=== PATIENT | male | born 1985 | race Caucasian/White ===

== ENCOUNTER 2024-08-14 17:43 | Emergency (ER) | payer SELFPAY ==
[~2024-08-14] VITALS: Ht 165.1 cm; Wt 68.0 kg
[2024-08-14] MEDS ORDERED: RX Prepack 6 Tabs Oxycodone 5mg UD ONE (18:10)
[2024-08-14] MEDS ORDERED: Amoxicillin/Clavulanate K 875 MG Tab PO ONE (18:10)
[2024-08-14] MEDS ORDERED: AMOCLA875 PO (18:12)
== END 2024-08-14 18:28 | disposition home or self-care (01) ==
LOC: ER 17:43
DX: K04.7 Periapical abscess without sinus (principal); I10 Essential (primary) hypertension
CPT/HCPCS: 99282; A9270

== ENCOUNTER 2025-01-09 12:30 | Emergency (ER) | payer OTHER ==
[~2025-01-09] VITALS: Ht 170.2 cm; Wt 70.0 kg
[~2025-01-09 12:30] MED LIST: AMOCLA875 PO
[2025-01-09] MEDS ORDERED: Lidocaine 4% 1 Patch TOP ONE ×2 (13:40→16:25)
[2025-01-09] MEDS ORDERED: Ketorolac Tromethamine 15mg Vial IM ONE (13:40)
[2025-01-09] MEDS ORDERED: Ketorolac Tromethamine 30mg Vial IM ONE (16:25)
[2025-01-09] MEDS ORDERED: TIZA4 PO (17:01)
[2025-01-09] MEDS ORDERED: LIDO700A20 TOP (17:01)
== END 2025-01-09 17:02 | disposition home or self-care (01) ==
LOC: ER 12:30
DX: S39.012A Strain of muscle, fascia and tendon of lower back, initial encounter (principal); X58.XXXA Exposure to other specified factors, initial encounter; Z59.89 Other problems related to housing and economic circumstances
CPT/HCPCS: 72100; 96372; 99283-25; A9270; J1885